=== PATIENT | male | born 1950 | race African-American/Black ===

== ENCOUNTER 2021-05-23 19:50 | Emergency (ER) | payer OTHER ==
[2021-05-23] MEDS ORDERED: Boostrix 0.5 ML (Tdap) VIAL ONE (20:09)
[2021-05-23] MEDS ORDERED: Lidocaine 1% (PF) 30 ML VIAL ONE (22:05)
[2021-05-24] MEDS ORDERED: HYDROcodone/Acetaminophen 5/325 mg Tablet ONE (02:20)
== END 2021-05-23 22:45 | disposition home or self-care (01) ==
LOC: CSHERS 19:50
DX: S67.02XA Crushing injury of left thumb, initial encounter (principal); W23.0XXA Caught, crushed, jammed, or pinched between moving objects, initial encounter; I10 Essential (primary) hypertension
CPT/HCPCS: 12001; 90471; 90715; J2001